=== PATIENT | male | born 1960 | race Caucasian/White ===

== ENCOUNTER 2023-11-02 10:21 | Outpatient (AMB) | payer MEDICARE, MEDICAID, SELFPAY ==
--- NOTE | 2023-11-02 10:28 | MHC.OFFVIS ---
Vital Signs 11/02/23 10:29 Height 5 ft 9 in Weight 160 lb BMI 23.6 BP 125/76 Blood Pressure Location Lt brachial Position Sitting Respiration 14 Pulse 83 Pulse Source Pulse Oximeter Pulse Oximetry (%) 96 Oxygen Delivery Method Room Air Intake Visit Reasons: Chronic Pain Syndrome Allergies Latex, Natural Rubber Adverse Reaction (Severe, Verified 11/02/23 10:30) rash Medication List - Last Reconciled 11/02/23 by Milka Carver LPN albuterol sulfate 90 mcg/actuation (Ventolin HFA) inhalation baclofen 10 mg PO DAILY PRN divalproex ER 500 mg PO TID fluticasone furoate-vilanterol 200-25 mcg/dose (Breo Ellipta) 1 ea inhalation DAILY folic acid 2 mg PO DAILY levothyroxine 150 mcg PO DAILY lisinopril 40 mg PO DAILY mirtazapine mg PO omeprazole 40 mg PO BID omeprazole 20 mg PO DAILY propranolol ER (Inderal LA) 80 mg PO DAILY sulfasalazine 1 g PO DAILY tamsulosin 0.4 mg PO DAILY HPI HPI Chronic Pain Syndrome: Details: 63-year-old male who presents today to the office for an evaluation of chronic pain symptoms. He reports multifactorial pain in the neck, both hips, and the lower back. The pain started about 10 years ago. He has longstanding chronic pain from osteoarthritis and years of service in the . It is rated at 10/10 in intensity. He has been on permanent disability since 1994. The pain is worse than constant throughout the day. Movements and weather changes make it worse. He is waiting for a knee replacement. He smokes medical marijuana for pain and takes oxycodone. He has difficulty walking and sleeping. He used to walk in the [place] all the time in the past. He is interested in getting enrolled in an opioid program for pain management. He defers surgical options or interventions.? Review of Systems Const All systems reviewed & are unremarkable except as noted in HPI and below Physical Exam Vital Signs: Last Vital Signs Pulse 83 11/02/23 10:29 Resp 14 11/02/23 10:29 BP 125/76 11/02/23 10:29 Pulse Ox 96 11/02/23 10:29 Oxygen Delivery Method Room Air 11/02/23 10:29 BMI result Body Mass Index 23.6 General: Appears afebrile. Alert and oriented. Mood and affect appropriate. Follows and participates in conversation appropriately. Respiratory effort is unlabored. Able to transition from sit to stand unassisted. Ambulates with bilaterally normal heel strike and toe off. Results Reviewed Results Reviewed: No imaging is available for review. Assessment & Plan Assessment & Plan (1) Chronic pain syndrome: Code(s): G89.4 - Chronic pain syndrome Category: Medical Plan I offered interventional management options, but the patient is not interested. He requested continuing on the oxycodone for pain management. I informed him that we are currently not accepting any patients in the opioid program. I recommended trying OTC CBD supplements for pain. The patient will follow up P.R.N. Scribed for Dr. Caballero by Richardson Alcantara, medical record librarian, on 11/02/2023. I, Dr. Caballero, have personally reviewed and agree with the information entered by the scribe. Coding Level of Care Code New Pt Level 3 (71958) Diagnoses Chronic pain syndrome G89.4
[2023-11-02 10:29] VITALS: BP 125/76; PULSE 83; RESP 14; O2SAT 96; BMI 23.6
== END 2023-11-02 11:05 | disposition home or self-care (01) ==
PROVIDERS: PCP Family Medicine; Visit Provider Internal Medicine
DX: G89.4 Chronic pain syndrome (principal)
CPT/HCPCS: 99203

== ENCOUNTER → 2023-11-02 10:21 | Outpatient (BNVA) | payer MEDICARE, MEDICAID, SELFPAY | PROVIDERS: PCP Family Medicine; Visit Provider Internal Medicine | DX: G89.4 Chronic pain syndrome (principal) | CPT/HCPCS: 99202 ==